=== PATIENT | male | born 1960 | race Caucasian/White ===

== ENCOUNTER → 2019-07-01 09:12 | Outpatient (CLI) | payer OTHER, MEDICAID, SELFPAY ==
--- NOTE | 2019-07-01 | DI.US.S_ITS ---
PROCEDURE: US ARTERIAL DUPLEX LE BI INDICATIONS: PERIPHERAL VASCULAR DISEASE, UNSPECIFIED TECHNIQUE: Color and pulse Doppler interrogation was performed of both lower extremity arterial systems, with image documentation. COMPARISON: None. FINDINGS: Right lower extremity: Common femoral artery: 150 cm/sec, with triphasic flow. Deep femoral artery: 145 cm/sec, with triphasic flow. Proximal superficial femoral artery: 98 cm/sec, with biphasic flow. Mid superficial femoral artery: 296 cm/sec, with biphasic flow. Distal superficial femoral artery: 71 cm/sec, with biphasic flow. Popliteal artery: 50 cm/sec, with biphasic flow. Posterior tibial artery: 33, 32, 21 cm/sec, with biphasic flow. Anterior tibial artery/dorsalis pedis: 33, 32, 29 cm/sec, with biphasic flow. Vasquez-scale imaging description: A diffuse plaque. Severe focal stenosis mid SFA. Left lower extremity: Common femoral artery: 116 cm/sec, with triphasic flow. Deep femoral artery: 103 cm/sec, with triphasic flow. Proximal superficial femoral artery: 99 cm/sec, with triphasic flow. Mid superficial femoral artery: 95 cm/sec, with biphasic flow. Distal superficial femoral artery: 116 cm/sec, with biphasic flow. Popliteal artery: 62 cm/sec, with biphasic flow. Posterior tibial artery: 44, 34 cm/sec, with biphasic flow. Anterior tibial artery/dorsalis pedis: 40, 46, 59, 66 cm/sec, with biphasic flow. Vasquez-scale imaging description: Diffuse plaque. No significant stenosis. IMPRESSION: 1. Triphasic waveforms indicate no significant inflow disease. 2. Diffuse bilateral plaque. 3. Focal severe mid right SFA stenosis. Dictated by: Colten Gomez M.D. on 07/01/2019 at 16:00 Approved by: Colten Gomez M.D. on 07/01/2019 at 16:09
== END ==
PROVIDERS: Visit Provider Internal Medicine Cardiovascular Disease
DX: I70.203 Unspecified atherosclerosis of native arteries of extremities, bilateral legs (principal)
CPT/HCPCS: 93925

== ENCOUNTER → 2019-07-27 13:11 | Outpatient (CLI) | payer OTHER, SELFPAY ==
--- NOTE | 2019-07-27 | DI.ECHO.S_ITS ---
[place] +---------+ [facility] +---------+ : : [address] : : : : [id number] : : : : Phone: [phone]+ Echocardiogram Report + + :Name: HEIDI SRINIVASAN Study Date: 07/27/2019 Height: 75 in : :[facility] Weight: 240 lb : : Gender: Male BSA: 2.4 m2 : :: 1960 Age: 59 yrs BP: 142/82 mmHg: :Reason For Study: MURMUR : :Ordering Physician: Sue : :Koby Preciado Performed By: Phillip Graham : :Referring: SUE PRECIADO : + + Interpretation Summary 1) Mild to moderately increased left ventricular thickness (concentric) with hyperdynamic systolic function (EF > 80%). 2) The left ventricular outflow velocity with valsalva is 1.4m/s. The color doppler suggests some flow disturbance in the LVOT. 3) Normal right ventricular size and function. 4) Chordal NADYA present. Moderately mitral regurgitation that is posteriorly directed. 5) No proir Echo available for comparison. Procedure: A two-dimensional transthoracic echocardiogram with color flow and Doppler was performed. The study quality was technically adequate. There is no prior echocardiogram noted for this patient. The patient was in a bradycardic rhythm during the exam. The heart rate ranged between 38-57 bpm during the study. Left Ventricle: The left ventricle is normal in size. The left ventricular outflow velocity with valsalva is 1.4m/s. The left ventricle is hyperdynamic. The ejection fraction is estimated to be >80%. There are no focal wall motion abnormalities. Right Ventricle: The right ventricle is normal in size and function. Atria: There is moderate biatrial enlargement. The interatrial septum is intact with no evidence for an atrial septal defect. Mitral Valve: There is systolic anterior motion of the mitral valve. There is systolic anterior motion of the chordal apparatus. There is moderate mitral regurgitation. Aortic Valve: The aortic valve is trileaflet. The aortic valve opens well. There is heightened LVOT flow as well as across the aortic valve due to systolic anterior motion of the anterior mitral valve leaflet. No aortic regurgitation is present. Tricuspid Valve: The tricuspid valve is normal in structure and function. There is trace tricuspid regurgitation. Pulmonary artery pressures cannot be estimated because of the lack of a measurable TR jet velocity. Pulmonic Valve: The pulmonic valve is normal in structure and function. There is trace pulmonic regurgitation. Great Vessels: The aortic root is normal size. The dimensions of the ascending aorta are normal. The pulmonary artery is normal size. The inferior vena cava was not visualized. Pericardium/ Pleura There is no pericardial effusion. There is no pleural effusion. MMode/2D Measurements & Calculations LVIDd: 4.4 cm LVOT diam: 2.1 cm LVIDs: 2.9 cm Ao root diam: 3.3 cm FS: 34.8 % Aortic Jxn: 2.9 cm EPSS: 0.31 cm asc Aorta Diam: 3.4 cm IVSd: 1.4 cm LVPWd: 1.3 cm LV agosto. diameter/BSA (cm/m^2): 1.9 LV sys. diameter/BSA (cm/m^2): 1.2 LA A2 area: 28.1 cm2 RA long axis: 5.8 cm LA A4 area: 28.8 cm2 RA area: 24.0 cm2 LA length (vol): 6.5 cm RA vol: 84.0 ml LA vol: 105.9 ml RA : 35.4 ml/m2 LA vol index: 44.6 ml/m2 TAPSE: 2.7 cm Doppler Measurements & Calculations Ao V2 max: 221.2 cm/sec LVOT Max Damien: 237.7 cm/sec Ao V2 mean: 161.0 cm/sec LV V1 max P.6 mmHg Ao max P.6 mmHg LV V1 VTI: 61.8 cm Ao mean P.9 mmHg LIZABETH(I,D): 3.8 cm2 Ao V2 VTI: 59.5 cm LIZABETH(V,D): 3.9 cm2 sev ratio: 1.0 LIZABETH indexed to BSA (cm^2/m^2): 1.6 MV E max damien: 83.1 cm/sec PA V2 max: 68.5 cm/sec MV A max damien: 85.5 cm/sec PA V2 mean: 49.9 cm/sec MV E/A: 0.97 PA mean P.1 mmHg Med Peak E' Damien: 6.4 cm/sec PA Accel Time: 0.11 sec E/E' med: 13.0 Lat Peak E' Damien: 8.5 cm/sec E/E' lat: 9.7 E/e' average: 11.4 MV dec time: 0.47 sec SV(LVOT): 223.5 ml Reading Physician:03:54 PM
--- NOTE | 2019-07-27 16:20 | PM.TREADMILL ---
Cardiac Stress Test Report Referral & Results Date Patient Seen: 07/27/19 Time Patient Seen: 15:20 Requesting provider: Conor Eli Rest ECG: Sinus at 64 bpm Procedure Note: Pharmacologic stress with NM imaging. Impression: Protocol completed without incident. Patient had mild shortness of breath but no chest pain or nausea. No significant ECG changes. No aminoph given. Preliminary report by Dieter Lyman PA-C Please note: Actual ECG tracings can be found in the PACS system.
--- NOTE | 2019-08-03 16:55 | DI.NM.S_ITS ---
DATE OF SERVICE: PROCEDURE PERFORMED: Vasodilator pharmacologic stress and rest myocardial perfusion imaging with gating to assess ejection fraction and regional wall motion. ORDERING PROVIDER: Dr. Conor Eli. INDICATIONS: The patient is a 59-year-old hypertensive smoker with dyspnea and a cardiac murmur. 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 With this, he had a normal hemodynamic response. He had mild dyspnea but no chest discomfort. His resting ECG is normal and there are no ischemic changes with stress. There were no arrhythmias. Per protocol, 27.1 mCi of technetium-99m Myoview was injected. The patient was imaged 20 minutes later using a gated SPECT acquisition protocol. He returned the following day and was reinjected with an additional 26.1 mCi of technetium-99m Myoview and was imaged 30 minutes later, again using a gated SPECT acquisition protocol. FINDINGS: RAW DATA:: There is marginal image quality. Lung-heart ratio is normal at 0.37, but the TID ratio is elevated at 1.42, which can be a sign of global ischemia but is nonspecific with the use of vasodilator stress. QUANTITATED GATED SPECT:: Post-stress ejection fraction is estimated at 68% without any focal wall motion abnormality. The resting ejection fraction is 72%, again without any focal wall motion abnormality. Resting end-diastolic volume is 133 mL which is mildly increased and does appear to be significantly larger than on the post-stress images. MYOCARDIAL PERFUSION IMAGING:: Post-stress supine images show a fairly normal myocardial perfusion pattern with the exception of a very small, subtle defect in the distal inferoapex which resolves on the prone imaging, although there is a very subtle defect in the inferolateral aspect on the prone images. The resting images generally show a similar perfusion pattern with no significant change in the inferoapical defect. IMPRESSION: 1. Probable normal myocardial perfusion study. 2. There is a small fixed inferoapical defect that shifts inferolaterally on the prone images, suggesting an attenuation artifact. There is no compelling evidence for any significant myocardial ischemia or previous myocardial infarction on perfusion imaging. 3. Normal left ventricular systolic function although with mild left ventricular enlargement and a significant increase in left ventricular volumes post stress with a TID ratio 1.42 which can be a sign of balanced global ischemia although is nonspecific in the setting of vasodilator stress. Clinical correlation is recommended. 4. No angina or ECG evidence of ischemia with pharmacologic vasodilator stress. Yamilka Maurizio - JASKARAN/hafsa/rommel doc#: [id number]/job#: [id number] dd: 08/03/2019 13:13:00 dt: 08/03/2019 15:39:00 DICTATING MD/COPIES TO: Fawad Antony MD; Conor Eli MD COPIES MNE: FRANKI;
== END ==
PROVIDERS: Visit Provider Internal Medicine Cardiovascular Disease
DX: I34.0 Nonrheumatic mitral (valve) insufficiency (principal); R01.1 Cardiac murmur, unspecified; R06.02 Shortness of breath
CPT/HCPCS: 78452; 93017; 93306; A9502; J2785